=== PATIENT | male | born 1940 | race Caucasian/White ===

== ENCOUNTER 2018-07-31 10:44 | Observation (INO) | payer MEDICARE, BC ==
[~2018-07-31] VITALS: Ht 170.2 cm; Wt 76.0 kg
[2018-07-31] MEDS: SODIUM CHLORIDE 0.9% 1,000 ML IV SCH ×6 (11:27→21:56)
[2018-07-31 11:47] VITALS: BP 153/81
[2018-07-31] MEDS ORDERED: AMLO-150 PO (11:59)
[2018-07-31] MEDS ORDERED: LISI30TA4 PO (12:00)
[2018-07-31] MEDS ORDERED: PLEASE ENTER HEIGHT AND WEIGHT MC SCH (12:00)
[2018-07-31] MEDS ORDERED: ATOR-2 PO (12:04)
[2018-07-31] MEDS ORDERED: METF500T17 PO (12:04)
[2018-07-31] MEDS ORDERED: OMEP-110 PO (12:04)
[2018-07-31 12:13] LABS: ANION GAP 9 mmol/L (5-15); CALCIUM 9.9 mg/dL (8.5-10.1); CHLORIDE 110 mmol/L (98-107)
[2018-07-31 12:15] LABS: CREATININE 0.98 mg/dL (0.7-1.3)
[2018-07-31 12:37] LABS: BASOPHILS # (AUTO) 0.02 x10^3/uL (0-0.1); BASOPHILS % (AUTO) 0 % (0-1); EOSINOPHILS # (AUTO) 0.05 x10^3/uL (0-0.4); EOSINOPHILS % (AUTO) 1 % (1-7); LYMPHOCYTES % (AUTO) 21 % (22-44); MD SCAN; MEAN CORPUSCULAR HEMOGLOBIN 29.8 pg (27.5-34.5); MEAN CORPUSCULAR HGB CONC 32.9 g/dL (33.2-36.2); MEAN CORPUSCULAR VOLUME 90.5 fL (81-97); MONOCYTES # (AUTO) 0.51 x10^3/uL (0.2-0.8); MONOCYTES % (AUTO) 6 % (2-9); NEUTROPHILS # (AUTO) 6.69 x10^3/uL (1.8-6.8); NEUTROPHILS % (AUTO) 73 % (42-75); PLATELET COUNT 217 x10^3/uL (130-400); RED BLOOD COUNT 5.34 x10^6/uL (4.38-5.82); RED CELL DISTRIBUTION WIDTH 13.8 % (9.4-14.8)
[2018-07-31] MEDS ORDERED: FENTANYL PF 100 MCG/2ML ONE (12:42)
[2018-07-31] MEDS ORDERED: MIDAZOLAM 1 MG/ML, 5ML ONE (12:42)
[2018-07-31] MEDS ORDERED: VERAPAMIL 2.5 MG/ML, 2ML ONE (12:42)
[2018-07-31] MEDS ORDERED: HEPARIN 1,000 UNITS/ML, 10ML ONE (12:42)
[2018-07-31] MEDS ORDERED: LIDOCAINE 1%, 20ML ONE (12:42)
[2018-07-31] MEDS ORDERED: TICAGRELOR 90 MG TABLET ONE (13:18)
[2018-07-31] MEDS ORDERED: BIVALIRUDIN 250 MG ONE (13:18)
[2018-07-31 14:10] VITALS: BP 162/85
[2018-07-31] MEDS ORDERED: ONDANSETRON 2MG/ML, 2ML IVPush PRN (14:30)
[2018-07-31] MEDS ORDERED: ENALAPRILAT 1.25 MG/ML, 2ML IV PRN (15:30)
[2018-07-31] MEDS: INSULIN LISPRO 100 UNITS/ML, PEN SQ-INSULIN SCH ×2 (18:13→20:14)
[2018-07-31] MEDS: METOPROLOL TARTRATE 25 MG TABLET PO SCH (18:14)
[2018-07-31 19:54] VITALS: BP 132/81
[2018-07-31] MEDS: TICAGRELOR 90 MG TABLET PO SCH (20:11)
[2018-07-31] MEDS ORDERED: ATORVASTATIN 40 MG TABLET PO SCH (21:00)
[2018-08-01 01:37] VITALS: BP 133/73
[2018-08-01] MEDS: SODIUM CHLORIDE 0.9% 1,000 ML IV SCH ×3 (03:21→07:08)
[2018-08-01 05:27] LABS: ANION GAP 7 mmol/L (5-15); CALCIUM 8.8 mg/dL (8.5-10.1); CHLORIDE 112 mmol/L (98-107)
[2018-08-01] MEDS: METOPROLOL TARTRATE 25 MG TABLET PO SCH (05:33)
[2018-08-01 05:35] VITALS: BP 125/73
[2018-08-01] MEDS ORDERED: OMEPRAZOLE 20 MG CAPSULE.DR PO SCH (07:30)
[2018-08-01] MEDS: TICAGRELOR 90 MG TABLET PO SCH (07:51)
[2018-08-01] MEDS: INSULIN LISPRO 100 UNITS/ML, PEN SQ-INSULIN SCH (07:52)
[2018-08-01] MEDS ORDERED: AMLODIPINE 5 MG TABLET PO SCH (09:00)
[2018-08-01] MEDS ORDERED: ASPIRIN 81 MG TABLET EC PO SCH (09:00)
[2018-08-01] MEDS ORDERED: LISINOPRIL 10 MG TABLET PO SCH (09:00)
[2018-08-01 09:05] VITALS: BP 143/78
[2018-08-01] MEDS ORDERED: TICA90TA PO (10:19)
[2018-08-01] MEDS ORDERED: METO25TA2 PO (10:27)
[2018-08-01] MEDS ORDERED: ASPI81TA45 PO (10:27)
== END 2018-08-01 10:49 | disposition home or self-care (01) ==
LOC: CACL 10:44 → ORIP 14:01 → 5SO 14:19 → DCLOUNGE 08-01 10:33
PROVIDERS: ADMIT Internal Medicine Cardiovascular Disease; ATTEND Internal Medicine Cardiovascular Disease
DX: I25.10 Atherosclerotic heart disease of native coronary artery without angina pectoris (principal); I10 Essential (primary) hypertension; E78.5 Hyperlipidemia, unspecified; E11.9 Type 2 diabetes mellitus without complications
CPT/HCPCS: 36415; 80048; 82962; 85014; 85018; 85025; 93458; 93571; 96372; 99156; 99157; C1725; C1769; C1874; C1887; C1894; C9600; G0378; J0583; J1644; J1815; J2250; J3010; J3490; Q9967